=== PATIENT | female | born 1975 | race American Indian/Alaskan Native ===

== ENCOUNTER 2020-05-29 06:03 | Observation (INO) | payer BC ==
[2020-05-28 11:47] LABS: Basophils # (Auto) 0.1 K/mm3 (0.0-0.1); Basophils % (Auto) 0.5 % (0.0-1.8); Eosinophils # (Auto) 0.1 K/mm3 (0.0-0.4); Eosinophils % (Auto) 0.5 % (0.0-4.3); Hematocrit 32.6 % (30.3-42.9); Hemoglobin 10.5 gm/dl (10.1-14.3); Lymphocytes # (Auto) 2.7 K/mm3 (1.2-5.4); Lymphocytes % (Auto) 25.9 % (13.4-35.0); Mean Corpuscular HGB Conc 32 % (30-34); Mean Corpuscular Volume 74 fl (79-97); Monocytes # (Auto) 0.8 K/mm3 (0.0-0.8); Monocytes % (Auto) 7.3 % (0.0-7.3); Platelet Count 385 K/mm3 (140-440); Red Blood Count 4.39 M/mm3 (3.65-5.03); Red Cell Distribution Width 15.2 % (13.2-15.2)
--- NOTE | 2020-05-28 12:08 | Anesthesia Consultation ---
Anesthesia Consult and Med Hx Date of service: 05/29/20 - Airway Anesthetic Teeth Evaluation: Good ROM Head & Neck: Adequate Mental/Hyoid Distance: Adequate Mallampati Class: Class I Intubation Access Assessment: Good - Pre-Operative Health Status ASA Pre-Surgery Classification: ASA2 Proposed Anesthetic Plan: General Nerve Block: TAP if converted to open - Pulmonary Hx Smoking: No Hx Respiratory Symptoms: No - Cardiovascular System Hx Hypertension: Yes (instructed to take amlodipine DOS) Hx Heart Attack/AMI: No - Central Nervous System CVA: No - Endocrine Hx Renal Disease: No Hx Liver Disease: No Hx Insulin Dependent Diabetes: No Hx Non-Insulin Dependent Diabetes: No Hx Thyroid Disease: No - Hematic Hx Anemia: Yes (no hx blood transfusions) - Other Systems Hx Obesity: No - Additional Comments Anesthesia Medical History Comments: No hx anesthetic complications.
--- NOTE | 2020-05-28 14:28 | History and Physical Report ---
History of Present Illness Date of examination: 05/25/20 Date of admission: 05/29/20 Chief complaint: heavy vaginal bleeding, fibroids History of present illness: Visit Type: Pre-Op CC: Pre op. History of Present Illness: pt presents for Pre op: LAVH............. .........................................................Anusha Ugalde May 25, 2020 3:30 PM Mask, Patient denies fever, cough, shortness of breath and exposure to COVID-19. Pt presents for pre op for LAVH with BS. All risk/benefits/alternatives were d/w pt and questions were addressed and answered. Consents signed and placed on the chart. Vital Signs: Patient Profile: 45 Years Old Female Height: 64.25 inches (163.19 cm) Weight: 157 pounds BMI: 26.74 (left arm) Date of Last Mammogram: 09/19/2019 Date of Last Pap Smear: 05/13/2019 Past History : 4 Term Births: 3 Living Children: 3 Para: 3 Elect. Ab: 1 MORTGAGE ANALYST History Uterine Surgery (not C/S): negative Operations: positive Tubal Ligation Hospitalizations: negative Anesthesia Complications: negative Abnormal PAP: negative Uterine Anomaly: negative MART Exposure: negative Infertility: negative Infection History HIV Risk Eval: no Hep B Immunized: no TB exposure: no Personal hx. of genital herpes: no Partner hx. of genital herpes: no Hx of STD: Trichomonas Active Medications (reviewed today): LYSTEDA 650 MG ORAL TABLET (TRANEXAMIC ACID) 1300 mg 3 times daily (3900 mg/day) for up to 5 days during monthly menstruation LYSTEDA TABLET (TRANEXAMIC ACID TABS) MULTI VITAMINS () IBUPROFEN 800 MG ORAL TABLET (IBUPROFEN) 1 po q6 hr prn pain AMLODIPINE BESYLATE TABLET (AMLODIPINE BESYLATE TABS) Current Allergies (reviewed today): No known allergies Past Medical History: Autoimmune Disorder recent chronic hives unkn etiology Hypertension- controlled on meds Past Surgical History: Reviewed history from 01/23/2012 and no changes required: positive Tubal Ligation [FH-SH-CCC] Risk Factors: Smoked Tobacco Use: Never smoker Smokeless Tobacco Use: Never Drug use: no HIV high-risk behavior: no Alcohol use: yes Exercise: no Seatbelt use: 100 % Mammogram History: Date of Last Mammogram: 09/19/2019 PAP Smear History: Date of Last PAP Smear: 05/13/2019 [[facility]] [Labs In-House] Physical Exam Appearance: well developed, well nourished, no acute distress Other Exams Lungs: no rales, rhonchi, or wheezes Abdomen: soft, non-tender, no masses, bowel sounds normal Extremities: normal alignment, no joint enlargement, crepitus, masses or tenderness; normal tone and strength Genitourinary Exam Comments: deferred until EUA Past History Past Medical History: other (see hpi) Past Surgical History: other (see hpi) MORTGAGE ANALYST History: other (see hpi) Family/Genetic History: other (see hpi) Social history: other (see hpi) Medications and Allergies Allergies Allergy/AdvReac Type Severity Reaction Status Date / Time No Known Allergies Allergy Unverified 05/25/20 17:36 Home Medications Medication Instructions Recorded Confirmed Last Taken Type amLODIPine [Norvasc] 10 mg PO DAILY 05/25/20 05/25/20 Unknown History Active Meds: Active Medications Acetaminophen (Acetaminophen 500 Mg Tab) 1,000 mg PO PREOP JACK Stop: 05/29/20 23:00 Celecoxib (Celecoxib 200 Mg Cap) 200 mg PO PREOP NR Stop: 05/29/20 23:00 Gabapentin (Gabapentin 300 Mg Cap) 300 mg PO PREOP NR Stop: 05/29/20 23:00 Lactated Ringer's (Lactated Ringers) 1,000 mls @ 100 mls/hr IV DIRECT JACK Stop: 05/29/20 23:59 Midazolam HCl (Midazolam 2 Mg/2 Ml Inj) 2 mg IV PREOP NR Stop: 05/29/20 23:00 Scopolamine (Scopolamine Transdermal Patch 72 Hr) 1 each TD PREOP NR Stop: 05/29/20 23:00 - Vital Signs Vital signs: Vital Signs Temp Pulse Resp BP Pulse Ox 98.3 F 88 20 124/77 100 05/28/20 10:40 05/28/20 10:40 05/28/20 10:40 05/28/20 10:40 05/28/20 10:40 Temp Pulse Resp BP Pulse Ox 98.3 F 88 20 124/77 100 05/28/20 10:40 05/28/20 10:40 05/28/20 10:40 05/28/20 10:40 05/28/20 10:40 - Physical Exam Breasts: Positive: deferred Cardiovascular: Normal S1, Normal S2 Lungs: Positive: Clear to auscultation, Normal air movement Abdomen: Positive: normal appearance, soft. Negative: distention, tenderness, guarding Genitourinary (Female): Positive: other (deferred) Extremities: Positive: normal. Negative: tenderness, edema Deep Tendon Reflex Grade: Normal +2 Results Result Diagrams: 05/28/20 11:32 Abnormal lab results 05/28/20 Range/Units 11:32 MCV 74 L (79-97) fl MCH 24 L (28-32) pg All other labs normal. Assessment and Plan - Patient Problems (1) Menorrhagia with regular cycle Status: Acute Plan to address problem: -to OR for LAVH with BS -all risk, benetifst and alternatives were d/w pt and questions were addressed and answered. -consents signed and placed on the chart. (2) Fibroid uterus Status: Acute Qualifiers: Uterine leiomyoma location: intramural Qualified Code(s): D25.1 - Intramural leiomyoma of uterus
[~2020-05-29 06:03] MED LIST: ACETAMINOPHEN 500 MG TAB PO SCH; CELECOXIB 200 MG CAP PO NR; GABAPENTIN 300 MG CAP PO NR; MIDAZOLAM 2 MG/2 ML INJ IV NR; SCOPOLAMINE TRANSDERMAL PATCH 72 HR TD NR; ceFAZolin/Water 2 GM/20 ML 2 GM/20 ML SYRINGE IV NR
[2020-05-29] MEDS: LACTATED RINGERS 1,000 ML IV SCH ×2 (06:45→16:23)
[2020-05-29] MEDS ORDERED: KETOROLAC 30 MG/1 ML INJ ONE (07:23)
[2020-05-29] MEDS ORDERED: ROCURONIUM 50 MG/5 ML INJ IV ONE (07:23)
[2020-05-29] MEDS ORDERED: ONDANSETRON 4 MG/2 ML INJ IV PRN (07:23)
[2020-05-29] MEDS ORDERED: ONDANSETRON 4 MG/2 ML INJ ONE (07:23)
[2020-05-29] MEDS ORDERED: LIDOCAINE MPF (2%) 20 MG/1 ML VIAL 5 ML ONE (07:23)
[2020-05-29] MEDS ORDERED: HYDROmorphone 1 MG/1 ML INJ IV PRN (07:23)
[2020-05-29] MEDS ORDERED: dexAMETHasone 20 MG/5 ML VIAL ONE (07:23)
--- NOTE | 2020-05-29 07:23 | Anesthesia Day of Surgery ---
Anesthesia Day of Surgery - Day of Surgery Patient Examined: Yes Patient H&P Reviewed: Yes Patient is NPO: Yes
[2020-05-29] MEDS ORDERED: propofoL 200 MG/20 ML VIAL IV ONE (07:24)
[2020-05-29] MEDS ORDERED: HYDROmorphone 1 MG/1 ML INJ ONE (07:24)
[2020-05-29] MEDS ORDERED: CITRIC ACID-SOD CITRATE 500 ML IV ONE (07:42)
[2020-05-29] MEDS ORDERED: BUPIVACAINE/PF (0.5%) 5 MG/1 ML 30 ML VIAL INFILTRATI ONE (07:43)
[2020-05-29] MEDS ORDERED: METHYLENE BLUE 50 MG/10 ML AMP ONE (07:43)
[2020-05-29] MEDS ORDERED: VASOPRESSIN 20 UNIT/1 ML INJ ONE (07:44)
[2020-05-29] MEDS ORDERED: PHENYLEPHRINE/NS 1,000 MCG/10 ML SYRINGE (OR USE) IV ONE (08:43)
[2020-05-29] MEDS ORDERED: SODIUM CHLORIDE 0.9% 100 ML ONE (08:47)
[2020-05-29] MEDS ORDERED: LACTATED RINGERS 1,000 ML ONE ×2 (08:50→10:55)
[2020-05-29] MEDS ORDERED: VASOPRESSIN 20 UNIT/1 ML INJ IV ONE (10:36)
[2020-05-29] MEDS ORDERED: SODIUM CHLORIDE 0.9% 100 ML IVPB IV ONE (10:38)
[2020-05-29] MEDS ORDERED: BUPIVACAINE/PF (0.25%) 2.5 MG/ML 30 ML VIAL INFILTRATI ONE (10:39)
[2020-05-29] MEDS ORDERED: NEOSTIGMINE 10MG/10 ML INJ MDV ONE (10:45)
[2020-05-29] MEDS ORDERED: GLYCOPYRROLATE 0.4 MG/2 ML INJ ONE (10:45)
[2020-05-29] MEDS ORDERED: HYDROcodone/ACETAMINOPHEN 5-325 MG TAB PO PRN (10:56)
--- NOTE | 2020-05-29 10:56 | Operative Report ---
Operative Report Operative Report: Date of procedure: 05/29/2020 Pre-operative diagnosis: Uterine fibroids Menorrhagia Post-operative diagnosis: Same Procedure name(s): Laparoscopic assisted vaginal hysterectomy Bilateral salpingectomy Surgeon: Rupa Cardenas MD Crusher Foreman: Dr. Bonita Toney Anesthesia: General EBL: 200 mL Urine output:300cc of clear urine out at end of the procedure Fluids: 1600 mL Findings: Approximately 12 to 14-week size uterus with multiple myomas noted Normal ovaries bilaterally Evidence of bilateral tubal ligation via partial salpingectomy Indications: Patient presents with a history of menorrhagia. Patient has undergone medical therapy that was unsuccessful. Patient desired definitive therapy. All risk benefits and alternatives were discussed with the patient. Consents were signed and placed on the chart. Procedure: Patient was taken to the operating room where she was placed under general endotracheal anesthesia. She was then prepped and draped in sterile fashion. Izaguirre catheter was also placed at this time. It was at this point that the medium [employer] uterine manipulator was placed inside of the uterus after the uterus was sounded to approximately 12 cm. Attention was then turned to the umbilicus in which a supraumbilical incision was made. Under direct visualization the 5 mm trocar was placed inside the peritoneum the peritoneum was then insufflated. As at this point that the laparoscopic portion of the procedure was performed. 2 lateral 5 mm ports were also placed under direct visualization. Using the tripolar instrument the upper pedicles were cauterized and transected to the including round ligament with excellent hemostasis noted bilaterally. Attention was then turned vaginally. A weighted speculum was placed into the vagina and the cervix was grasped with a single-tooth tenaculum 2. The cervix was then injected circumferentially with Pitressin. The cervix was then circumferentially incised with the scalpel and the bladder dissected off of the pubovesical cervical fascia anteriorly with a sponge stick and Metzenbaum scissors. The same procedure was performed posteriorly and the posterior cul-de-sac was entered into sharply without difficulty. At this point a Xi Clamp was placed over the uterosacral ligaments on either side. These were then transected and suture ligated with 0 Vicryl. Hemostasis was assured. The cardinal ligaments were then clamped on both sides transected and suture ligated in similar fashion. The uterine arteries were then serially clamped with Xi clamps transected and suture ligated on both sides. Excellent hemostasis was visualized. After it was clear that the uterus had been complet ja[place] from all pedicles the uterus was removed vaginally intact with cervix intact. The vaginal cuff angles were closed with figure of 8 stitches of 0 Vicryl on both sides. The peritoneum was incorporated in the stitching of the vaginal cuff. A series of interrupted figure of 8 sutures using 0 Vicryl were used to close the entire vaginal cuff. Excellent hemostasis was noted. The vagina was then irrigated copiously. Attention was then turned laparoscopically at which time. Again all pedicles were noted to be hemostatic. All instruments were then removed from the abdomen and the vagina. All gas was released from the abdomen. The abdominal incisions were closed using 4-0 Monocryl. All of the abdominal incisions were injected with Marcaine without epi. Patient tolerated the procedure well sponge lap and needle counts were all correct 3 the patient was taken to the recovery room awake and in stable condition.
[2020-05-29] MEDS ORDERED: ACETAMINOPHEN 325 MG TAB PO PRN (11:00)
[2020-05-29] MEDS: ceFAZolin/NS 1 GM/50 ML 1 GM/50 ML BAG IV SCH ×2 (13:32→22:04)
[2020-05-29] MEDS: KETOROLAC 30 MG/1 ML INJ IV PRN ×2 (13:33→19:41)
--- NOTE | 2020-05-29 14:27 | Post Anesthesia Evaluation ---
- Post Anesthesia Evaluation Patient Participated: Yes Airway Patent: Yes Stable Respiratory Function: Yes Nausea/Vomiting: No Temp > 96.8F: Yes Pain Manageable: Yes Adequeate Hydration: Yes Anesthesia Complications: No
[2020-05-30] MEDS: KETOROLAC 30 MG/1 ML INJ IV PRN (01:39)
[2020-05-30 06:22] LABS: Hematocrit 28.1 % (30.3-42.9); Hemoglobin 8.9 gm/dl (10.1-14.3)
[2020-05-30 08:43] VITALS: BP 102/56
--- NOTE | 2020-05-30 09:03 | Progress Note ---
Assessment and Plan - Patient Problems (1) Menorrhagia with regular cycle Current Visit: No Status: Acute (2) Fibroid uterus Current Visit: No Status: Acute Qualifiers: Uterine leiomyoma location: intramural Qualified Code(s): D25.1 - Intramural leiomyoma of uterus (3) S/P laparoscopic assisted vaginal hysterectomy (LAVH) Current Visit: Yes Status: Acute Plan to address problem: -doing well -routine post op care -d/c home this am -f/u in office in 1 week for post op visit Subjective - Subjective Date of service: 05/30/20 Principal diagnosis: POD #1 s/p LAVH W/ BS Interval history: Pt doing well this well this am. States pain is well controlled. Pt states she is ready to go home today. +toleration of regular diet. Will d/c this am. Patient reports: appetite normal, voiding normally, pain well controlled, flatus, ambulating normally, no dizzy ambulation, no nauseated Objective - Vital Signs Latest vital signs: Vital Signs Temp Pulse Resp BP BP Pulse Ox 05/30/20 07:37 99.4 F 80 18 102/56 100 05/30/20 06:04 97.7 F 85 20 103/58 99 05/30/20 00:45 98.5 F 86 20 109/58 99 05/29/20 20:32 98.2 F 90 20 123/69 100 05/29/20 16:20 98.1 F 85 15 118/67 100 05/29/20 12:10 98.2 F 70 15 114/69 100 05/29/20 11:55 70 17 122/69 100 05/29/20 11:50 98.5 F 83 12 114/68 100 05/29/20 11:35 66 16 114/65 100 05/29/20 11:30 66 16 116/66 100 05/29/20 11:25 68 16 114/70 100 05/29/20 11:20 97.9 F 68 19 106/69 100 Intake and Output 05/29/20 05/30/20 05/30/20 22:59 06:59 14:59 Intake Total 1203.333 240 120 Output Total 2900 Balance -1696.667 240 120 Intake: IV 963.333 Lactated Ringers 1,000 ml 963.333 @ 100 mls/hr IV DIRECT JACK Rx#:[id number] Oral 240 240 120 Output: Urine 2900 Indwelling Catheter 1850 Void 1050 Other: Total, Intake Amount 240 240 120 Total, Output Amount 300 Voiding Method Toilet Toilet # Voids Void 1 1 1 - Exam Cardiovascular: Present: Normal S1, Normal S2 Lungs: Present: Clear to auscultation, Normal air movement Abdomen: Present: normal appearance, soft, normal bowel sounds. Absent: distention, tenderness, guarding Incision: Present: normal, dry, intact (open to air) - Labs Labs: Abnormal lab results 05/30/20 Range/Units 05:52 Hgb 8.9 L (10.1-14.3) gm/dl Hct 28.1 L (30.3-42.9) %
--- NOTE | 2020-05-30 09:04 | Discharge Summary ---
Providers - Providers Date of Admission: 05/29/20 10:56 Date of discharge: 05/30/20 Attending physician: RASHMI PRIDE Primary care physician: HOMICIDE DETECTIVE Hospitalization Reason for admission: other (LAVH W/ BS) Procedure: other (LAVH W/ BS) Procedure details: SEE OP NOTE Incision: normal, dry, intact Condition at discharge: Good Disposition: DC-01 TO HOME OR SELFCARE - Discharge Diagnoses (1) Menorrhagia with regular cycle Status: Acute (2) Fibroid uterus Status: Acute Qualifiers: Uterine leiomyoma location: intramural Qualified Code(s): D25.1 - Intramural leiomyoma of uterus Plan - Discharge Medications Prescriptions: Docusate Sodium [Colace] 100 mg PO BID PRN #60 capsule PRN Reason: Constipation Ibuprofen [Motrin 800 MG tab] 800 mg PO Q8HR PRN #30 tablet PRN Reason: Pain, Moderate (4-6) oxyCODONE /ACETAMINOPHEN [Percocet 5/325] 1 tab PO Q4HR #30 tab - Provider Discharge Summary Activity: no heavy lifting 4 weeks, no strenuous exercise Additional instructions: [] Smoking cessation referral if applicable(refer to patient education folder for contact #) [] Refer to [facility] Booklet Call your doctor immediately for: * Fever > 100.5 * Heavy vaginal bleeding ( >1 pad per hour) * Severe persistent headache * Shortness of breath * Reddened, hot, painful area to leg or breast * Drainage or odor from incision. * Keep incision clean and dry at all times and follow doctor's instructions regarding bathing/showering - Follow up plan Follow up: MIGUE KOCH MD [Primary Care Provider] - 7 Days RASHMI PRIDE MD [Staff Physician] - 7 Days
[2020-05-30] MEDS ORDERED: amLODIPine 10 MG TAB PO SCH (10:00)
[2020-05-30] MEDS ORDERED: IBUPROFEN 800 MG TAB PO PRN (11:00)
== END 2020-05-30 09:58 | disposition home or self-care (01) ==
LOC: OR 06:03 → OB 10:56
PROVIDERS: ADMIT Obstetrics & Gynecology; ATTEND Obstetrics & Gynecology
DX: N92.0 Excessive and frequent menstruation with regular cycle (principal); Z20.822 Contact with and (suspected) exposure to COVID-19; D25.1 Intramural leiomyoma of uterus; I10 Essential (primary) hypertension; Z98.51 Tubal ligation status
CPT/HCPCS: 36415; 58554; 81025; 85014; 85018; 85025; 86850; 86900; 86901; 88307; 96365; 96366; 96375; 96376; G0378; J0690; J1100; J1170; J1885; J2250; J2370; J2405; J2704; J2710; J7120; Q9968; U0003; 88302